=== PATIENT | male | born 1965 | race Caucasian/White ===

== ENCOUNTER 2018-08-12 17:32 | Emergency (ER) | payer OTHER ==
[~2018-08-12] VITALS: Ht 172.7 cm; Wt 88.5 kg
[~2018-08-12 17:32] MED LIST: PERCOCET 10-3251 TAB; TORADOL30 MG/ML
== END 2018-08-12 18:25 | disposition home or self-care (01) ==
LOC: ER 17:32
DX: S51.822A Laceration with foreign body of left forearm, initial encounter (principal); W45.8XXA Other foreign body or object entering through skin, initial encounter; Y93.89 Activity, other specified; Y92.89 Other specified places as the place of occurrence of the external cause; Y99.8 Other external cause status

== ENCOUNTER 2019-03-31 02:55 | Emergency (ER) | payer OTHER ==
[~2019-03-31] VITALS: Ht 172.7 cm; Wt 72.6 kg
[2019-03-31] MEDS ORDERED: METFORMIN (03:11)
== END 2019-03-31 04:23 | disposition home or self-care (01) ==
LOC: ER 02:55
DX: T23.122A Burn of first degree of single left finger (nail) except thumb, initial encounter (principal); X19.XXXA Contact with other heat and hot substances, initial encounter; Y93.89 Activity, other specified; Y92.89 Other specified places as the place of occurrence of the external cause; Y99.8 Other external cause status

== ENCOUNTER 2021-05-17 09:00 | Outpatient (CLI) | payer OTHER ==
[~2021-05-17 09:00] MED LIST changes: +METFORMIN
== END 2021-05-17 09:15 | disposition home or self-care (01) ==
LOC: PPH VACUNA 09:00
PROVIDERS: ATTEND Emergency Medicine Pediatric Emergency Medicine
DX: Z23 Encounter for immunization (principal)

== ENCOUNTER 2021-09-22 08:00 | Outpatient (CLI) | payer OTHER | END 2021-09-22 08:30 | disposition home or self-care (01) | LOC: PPH VACUNA 08:00 | PROVIDERS: ATTEND Emergency Medicine Pediatric Emergency Medicine | DX: Z23 Encounter for immunization (principal) ==

== ENCOUNTER 2022-02-22 15:24 | Outpatient (CLI) | payer OTHER | END 2022-02-22 15:29 | disposition home or self-care (01) | LOC: PPH VACUNA 15:24 | PROVIDERS: ATTEND Emergency Medicine Pediatric Emergency Medicine | DX: Z23 Encounter for immunization (principal) ==

== ENCOUNTER 2022-09-19 10:23 | Emergency (ER) | payer OTHER ==
[~2022-09-19] VITALS: Ht 172.7 cm; Wt 72.6 kg
[2022-09-19] MEDS ORDERED: JARDIANCE10 MG PO (10:44)
== END 2022-09-19 20:14 | disposition home or self-care (01) ==
LOC: ER 10:23
DX: K42.9 Umbilical hernia without obstruction or gangrene (principal); K57.30 Diverticulosis of large intestine without perforation or abscess without bleeding; E11.9 Type 2 diabetes mellitus without complications; Z79.84 Long term (current) use of oral hypoglycemic drugs

== ENCOUNTER 2023-02-28 07:30 | Day surgery (SDC) | payer OTHER ==
[2023-02-20 09:09] LABS: URINE EPITHELIAL CELLS 0.4 uL (0.0-38.8); URINE RBC 2.6 uL (0.0-20.8); URINE WBC 3.2 uL (0.0-23.2)
[2023-02-20 09:12] LABS: URINE BILIRRUBIN NEGATIVE (NEGATIVE); URINE BLOOD NEGATIVE; URINE LEUKOCYTE NEGATIVE; URINE NITRATE NEGATIVE; URINE PROTEIN NEGATIVE (NEGATIVE); URINE UROBILINOGEN 0.2 E.U./dl
[2023-02-20 09:15] LABS: URINE APPEARANCE CLEAR; URINE COLOR YELLOW; URINE GLUCOSE >=1000 MG/DL (NEGATIVE)
[2023-02-20 09:18] LABS: HEMOGLOBIN 18.1 g/dL (13-16.00); MEAN CELL VOLUME 91.3 fL (80.0-100.00); MEAN CORPUSCULAR HEMOGLOBIN 32.4 pg (27.00-32.0); MEAN CORPUSCULAR HGB CONC 35.5 g/dl (32.0-36.0); PLATELET COUNT 232 K/uL (150-450); RED BLOOD COUNT 5.59 M/uL (4.00-6.00); RED CELL DISTRIBUTION WIDTH 15.3 % (11.5-14.5)
[2023-02-20 09:24] LABS: CALCIUM 9.3 mg/dL (8.5-10.1); CREATININE SERUM 0.89 mg/dL (0.70-1.30); GFR 87.79; POTASSIUM 3.85 mEq/L (3.5-5.1)
[2023-02-20 09:28] LABS: INR 1.04; PARTIAL THROMBOPLASTIN TIME 30.8 SECONDS (22.0-34.0); PROTHROMBIN TIME 10.9 SECONDS (9.0-11.5)
[~2023-02-28 07:30] MED LIST changes: +JARDIANCE10 MG PO
[2023-02-28] MEDS ORDERED: TYLENOL ARTHRI650 MG PO (09:51)
[2023-02-28] MEDS ORDERED: TRAMADOL HCL50 MG PO (09:51)
[2023-02-28] MEDS ORDERED: NEURONTIN300 MG PO (09:51)
[2023-02-28] MEDS ORDERED: MIRALAX17 GM PO (09:51)
[2023-02-28] MEDS ORDERED: KETO10TA2 PO (09:51)
== END 2023-02-28 14:25 | disposition home or self-care (01) ==
LOC: CIR.AMB 07:30
PROVIDERS: ATTEND Surgery
DX: K42.0 Umbilical hernia with obstruction, without gangrene (principal); I10 Essential (primary) hypertension; R10.9 Unspecified abdominal pain; Z20.822 Contact with and (suspected) exposure to COVID-19
CPT/HCPCS: 49594; C1781